=== PATIENT | female | born 1990 | race American Indian/Alaskan Native ===

== ENCOUNTER 2018-12-11 16:44 | Emergency (ER) | payer BC ==
[2018-12-11 17:26] VITALS: RESP 16; TEMP 98.6
[2018-12-11 18:01] LABS: HCG,QUALITATIVE URINE NEGATIVE (NEGATIVE)
[2018-12-11 18:23] LABS: SQUAMOUS EPITHIAL < 1 /hpf (0-5); URINE BACTERIA RARE (<OCC); URINE BILIRUBIN NEGATIVE (NEGATIVE); URINE BLOOD NEGATIVE (NEGATIVE); URINE CLARITY Clear (Clear); URINE COLOR Straw (YELLOW); URINE GLUCOSE (UA) NORMAL (Normal); URINE LEUKOCYTE ESTERASE NEG Leu/uL (Negative); URINE PROTEIN 1+ mg/dL (NEGATIVE); URINE UROBILINOGEN NORMAL mg/dL (0.2-1.0)
--- NOTE | 2018-12-11 18:24 | RAD ---
Date of service: 12/11/2018 HISTORY: Cough COMPARISON: 04.25.16 TECHNIQUE: Chest PA and lateral views FINDINGS: LUNGS: No active pulmonary disease. PLEURA: No significant pleural effusion identified. No pneumothorax apparent. CARDIOVASCULAR: No aortic atherosclerotic calcification present. Normal cardiac size. No pulmonary vascular congestion. OSSEOUS STRUCTURES: No significant abnormalities. VISUALIZED UPPER ABDOMEN: Normal. OTHER FINDINGS: None. IMPRESSION: No active disease. No change
[2018-12-11 18:45] LABS: BASO # 0.1 K/uL (0.0-0.2); BASO % 0.7 % (0.0-2.0); EOS # 0.1 K/uL (0.0-0.7); EOS % 1.5 % (0.0-4.0); HEMOGLOBIN 11.7 g/dL (11.0-16.0); LYMPH # 2.8 K/uL (1.0-4.3); LYMPH % 31.3 % (20.0-40.0); MEAN CELL VOLUME 83.1 fL (81.0-99.0); MEAN CORPUSCULAR HEMOGLOBIN 26.7 pg (27.0-31.0); MEAN CORPUSCULAR HGB CONC 32.1 g/dL (33.0-37.0); MONO # 0.7 K/uL (0.0-0.8); MONO % 7.3 % (0.0-10.0); NEUT # 5.3 K/uL (1.8-7.0); NEUT % 59.2 % (50.0-75.0); RBC 4.38 Mil/uL (3.80-5.20); RED CELL DISTRIBUTION WIDTH 16.7 % (11.5-14.5); WHITE BLOOD COUNT 8.9 K/uL (4.8-10.8)
--- NOTE | 2018-12-11 19:06 | C.PDOC ---
History Of Present Illness 28 year old female presents to ED with complaint of sharp chest pain for 1 day. Patient states that the chest pain is worse with movement and deep breathes. Patient denies any recent travel. She denies history of DVT/PE. Patient denies SOB and palpitations. Time Seen by Provider: 12/11/18 17:39 Chief Complaint (Nursing): Chest Pain History Per: Patient History/Exam Limitations: no limitations Onset/Duration Of Symptoms: Days (1) Current Symptoms Are (Timing): Still Present Quality: Sharp Associated Symptoms: denies: Dyspnea Exacerbating Factors: Movement, Deep Breathing Alleviating Factors: None Recent travel outside of the [place]: No Past Medical History Reviewed: Historical Data, Nursing Documentation, Vital Signs Vital Signs: Last Vital Signs Temp 98.6 F 12/11/18 16:59 Pulse 80 12/11/18 16:59 Resp 16 12/11/18 16:59 BP 153/98 H 12/11/18 16:59 Pulse Ox 99 12/11/18 16:59 - Medical History PMH: No Chronic Diseases Denies: Deep Vein Thrombosis, Pulmonary Embolism Surgical History: No Surg Hx Family History: States: Unknown Family Hx - Social History Hx Alcohol Use: Yes Hx Substance Use: No - Immunization History Hx Influenza Vaccination: No Review Of Systems Except As Marked, All Systems Reviewed And Found Negative. Cardiovascular: Positive for: Chest Pain Physical Exam - Physical Exam Appears: Well, Non-toxic, No Acute Distress Skin: Normal Color, Warm, Dry Head: Atraumatic, Normacephalic Eye(s): bilateral: Normal Inspection, PERRL, EOMI Nose: Normal Oral Mucosa: Moist Chest: Symmetrical, Tenderness (reproducible chest wall tenderness) Cardiovascular: Rhythm Regular, No Murmur Respiratory: Normal Breath Sounds, No Rales, No Rhonchi, No Wheezing Gastrointestinal/Abdominal: Normal Exam, Soft, No Tenderness Extremity: Bilateral: Atraumatic, Normal Color And Temperature, Normal ROM Neurological/Psych: Oriented x3, Normal Speech, Normal Cognition ED Course And Treatment - Laboratory Results Result Diagrams: 12/11/18 18:32 12/11/18 18:32 Lab Results: Urine Color Straw (YELLOW) 12/11/18 17:31 Urine Clarity Clear (Clear) 12/11/18 17:31 Urine pH 5.0 (5.0-8.0) 12/11/18 17:31 Ur Specific [place] 1.006 (1.003-1.030) 12/11/18 17:31 Urine Protein 1+ mg/dL (NEGATIVE) H 12/11/18 17:31 Urine Glucose (UA) Normal mg/dL (Normal) 12/11/18 17:31 Urine Ketones Negative mg/dL (NEGATIVE) 12/11/18 17:31 Urine Blood Negative (NEGATIVE) 12/11/18 17:31 Urine Nitrate Negative (NEGATIVE) 12/11/18 17:31 Urine Bilirubin Negative (NEGATIVE) 12/11/18 17:31 Urine Urobilinogen Normal mg/dL (0.2-1.0) 12/11/18 17:31 Ur Leukocyte Esterase Neg Juni/uL (Negative) 12/11/18 17:31 Urine WBC (Auto) < 1 /hpf (0-5) 12/11/18 17:31 Ur Squamous Epith Cells < 1 /hpf (0-5) 12/11/18 17:31 Urine Bacteria Rare (<OCC) 12/11/18 17:31 Urine HCG, Qual Negative (NEGATIVE) 12/11/18 17:31 Urine HCG, Qual Negative (NEGATIVE) 12/11/18 17:31 ECG: Interpreted By Me, Viewed By Me ECG Rhythm: Sinus Rhythm ECG Interpretation: Normal Interpretation Of ECG: Normal axis. Normal intervals. No ST/T wave abnormalities. Rate From EC O2 Sat by Pulse Oximetry: 99 (in RA) - Other Rad CXR X-Ray: Interpreted by Me, Viewed By Me Interpretation: IMPRESSION: No active disease. No change Medical Decision Making Medical Decision Making: Assessment: musculoskeletal chest pain Plan: EKG and CXR ordered for patient Labs ordered with troponin and UA Patient given Motrin PO and Toradol IVP Disposition - Disposition Referrals: [facility] [Outside] Disposition: HOME/ ROUTINE Disposition Time: 20:00 Condition: STABLE Additional Instructions: follow up with your doctor within 2 days call to make an appointment take medication as needed return to ER if symptoms worsens or progress Prescriptions: Naproxen [Naprosyn] 500 mg PO BID PRN #16 tab PRN Reason: Pain, Moderate (4-7) Instructions: Costochondritis (DC) Forms: [facility] (Turkish), General Discharge Instructions - Clinical Impression Clinical Impression: Chest pain - Scribe Statement The provider has reviewed the documentation as recorded by the Scribe (Rosario Sims) All medical record entries made by the Scribe were at my direction and personally dictated by me. I have reviewed the chart and agree that the record accurately reflects my personal performance of the history, physical exam, medical decision making, and the department course for this patient. I have also personally directed, reviewed, and agree with the discharge instructions and disposition.
[2018-12-11 19:09] LABS: ALB/GLOB RATIO 1.1 (1.0-2.1); ALBUMIN 4.1 g/dL (3.5-5.0); AST/SGOT 25 U/L (14-36); BLOOD UREA NITROGEN 22 mg/dL (7-17); CALCIUM 8.7 mg/dl (8.6-10.4); GFR NON-AFRICAN AMERICAN 26
[2018-12-11 19:11] LABS: ALT/SGPT < 6 U/L (9-52)
[2018-12-11 20:18] VITALS: BP 127/87; PULSE 82; O2SAT 96
--- NOTE | 2018-12-12 11:07 | CARD ---
APPROVED REPORT Date of service: 12/11/2018 EKG Measurement Heart [id number] <Conclusion> Normal sinus rhythm Normal ECG
== END 2018-12-11 20:42 | disposition home or self-care (01) ==
LOC: C.ER 16:44
DX: R07.9 Chest pain, unspecified (principal)
CPT/HCPCS: 71046; 80053; 81001; 82550; 84484; 84703; 85025; 93005; 96374; 99285; J1885